=== PATIENT | female | born 1980 | race Caucasian/White ===

== ENCOUNTER 2018-05-19 21:43 | Emergency (ER) | payer OTHER ==
[~2018-05-19] VITALS: Ht 162.6 cm; Wt 60.0 kg
[2018-05-19] MEDS ORDERED: ACETAMINOPHEN 500 MG TABLET PO ONE (22:30)
[2018-05-19] MEDS ORDERED: PLEASE ENTER ALLERGIES MC SCH (22:30)
[2018-05-19] MEDS ORDERED: ACETAMINOPHEN 500 MG TABLET ONE (22:38)
[2018-05-19] MEDS ORDERED: IBUPROFEN 200 MG TABLET ONE (22:52)
[2018-05-19] MEDS ORDERED: IBUPROFEN 200 MG TABLET PO ONE (23:00)
[2018-05-19] MEDS ORDERED: LIDOCAINE-MPF 2% ,5ML ONE (23:11)
[2018-05-19 23:48] VITALS: BP 117/88
[2018-05-20] MEDS ORDERED: LORazepam 2 MG/ML, 1ML ONE (00:03)
[2018-05-20] MEDS ORDERED: MORPHINE SULFATE 4 MG/ML, 1ML ONE (00:12)
[2018-05-20] MEDS ORDERED: LORazepam 2 MG/ML, 1ML IVPush ONE (00:30)
== END 2018-05-20 01:28 | disposition home or self-care (01) ==
LOC: ED 22:28
DX: S01.412A Laceration without foreign body of left cheek and temporomandibular area, initial encounter (principal); S06.0X1A Concussion with loss of consciousness of 30 minutes or less, initial encounter; R41.3 Other amnesia; Y04.0XXA Assault by unarmed brawl or fight, initial encounter; Y93.89 Activity, other specified; Y92.89 Other specified places as the place of occurrence of the external cause; Y99.0 Civilian activity done for income or pay
CPT/HCPCS: 12053; 70450; 96374; 99285; J2060

== ENCOUNTER 2018-05-22 15:15 | Emergency (ER) | payer OTHER ==
[~2018-05-22] VITALS: Ht 167.6 cm; Wt 59.0 kg
[2018-05-22 15:18] VITALS: BP 117/83
== END 2018-05-22 17:07 | disposition home or self-care (01) ==
LOC: ED 17:01
DX: S22.32XA Fracture of one rib, left side, initial encounter for closed fracture (principal); Z87.891 Personal history of nicotine dependence; W22.8XXA Striking against or struck by other objects, initial encounter; Y93.89 Activity, other specified; Y99.8 Other external cause status; Y92.69 Other specified industrial and construction area as the place of occurrence of the external cause
CPT/HCPCS: 99284